=== PATIENT | male | born 2005 | race Caucasian/White ===

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

== ENCOUNTER 2023-11-25 09:30 | Emergency (ER) | payer OTHER ==
[~2023-11-25] VITALS: Ht 182.9 cm; Wt 50.0 kg
[2023-11-25 09:38] VITALS: BP 100/56; PULSE 70; RESP 16; TEMP 97.5; O2SAT 98
[2023-11-25 10:15] VITALS: O2SAT 98
[2023-11-25] MEDS ORDERED: IBUPROFEN 400 MG TAB ONE (10:30)
[2023-11-25] MEDS: IBUPROFEN 400 MG TAB PO ONE (10:33)
[2023-11-25] MEDS ORDERED: CYCL-711 PO (12:08)
[2023-11-25] MEDS ORDERED: IBUP-1842 PO (12:08)
[2023-11-25 12:13] VITALS: BP 121/75; PULSE 66; RESP 16; TEMP 98.1; O2SAT 99
== END 2023-11-25 12:13 | disposition home or self-care (01) ==
LOC: MED 09:30
DX: S16.1XXA Strain of muscle, fascia and tendon at neck level, initial encounter (principal); S39.012A Strain of muscle, fascia and tendon of lower back, initial encounter; J45.909 Unspecified asthma, uncomplicated; Z79.899 Other long term (current) drug therapy; V89.2XXA Person injured in unspecified motor-vehicle accident, traffic, initial encounter; Y93.89 Activity, other specified; Y92.89 Other specified places as the place of occurrence of the external cause; Y99.8 Other external cause status
CPT/HCPCS: 72050; 72110; 99284